=== PATIENT | female | born 2000 ===

== ENCOUNTER 2021-05-29 02:24 | Inpatient (IN) | payer BC ==
[2021-05-29] MEDS ORDERED: Carboprost Tromethamine 250 MCG/1 ML Amp IM PRN (02:37)
[2021-05-29] MEDS ORDERED: Butorphanol 1 MG/ML SDV IVPUSH PRN (02:37)
[2021-05-29] MEDS ORDERED: Sodium Chloride 0.9% 2.5 ML Syringe FLUSH PRN (02:37)
[2021-05-29] MEDS ORDERED: Tranexamic Acid 1,000 MG in Sodium Chloride 0.9% 100 ML IV PRN (02:37)
[2021-05-29] MEDS ORDERED: Sodium Chloride 0.9% 20 ML SDV IV PRN (02:37)
[2021-05-29] MEDS ORDERED: Sodium Chloride 0.9% 10 ML Syringe FLUSH PRN (02:37)
[2021-05-29] MEDS ORDERED: Nalbuphine 10 MG/1 ML Vial IVPUSH PRN (02:37)
[2021-05-29] MEDS ORDERED: Methylergonovine 0.2 MG/1 ML Amp IM PRN (02:37)
[2021-05-29] MEDS ORDERED: Water For Irrigation,Sterile 1,000 ML Container IRR PRN (02:37)
[2021-05-29] MEDS ORDERED: Lidocaine 1% 50 ML MDV INJECT PRN (02:37)
[2021-05-29] MEDS ORDERED: Misoprostol 200 MCG Tab PO PRN (02:37)
[2021-05-29] MEDS ORDERED: Ondansetron 4 MG/2 ML SDV IVPUSH PRN (02:37)
[2021-05-29] MEDS ORDERED: Oxytocin/0.9 % Sodium Chloride 30 UNIT/500 ML BAG IV SCH (02:45)
[2021-05-29] MEDS: Lactated Ringers 1,000 ML IV SCH ×2 (02:55→03:42)
[2021-05-29] MEDS ORDERED: oxyCODONE 5 MG Tab PO PRN (04:40)
[2021-05-29] MEDS ORDERED: Ibuprofen 400 MG Tab PO PRN (04:40)
[2021-05-29] MEDS ORDERED: Docusate Sodium 100 MG Cap PO PRN (04:40)
[2021-05-29] MEDS ORDERED: Acetaminophen 500 MG Tab PO PRN ×2 (04:40)
[2021-05-29] MEDS ORDERED: Lanolin 100% Cream 7 GM Tube TOP PRN (04:40)
[2021-05-29] MEDS ORDERED: Bisacodyl 10 MG Supp RECTAL PRN (04:40)
[2021-05-29] MEDS ORDERED: Benzocaine/Menthol 20%-0.5% Spray 78 GM Cannister TOP PRN (04:40)
[2021-05-29] MEDS ORDERED: Witch Hazel Medicated Pads 40/Jar TOP PRN (04:40)
--- NOTE | 2021-05-29 04:52 | PCM.LDHP ---
L&D History of Present Illness - General Date of Service: 05/29/21 Admit Problem/Dx: Patient Status Order with Admit Dx/Problem 05/29/21 02:37 Patient Status [ADT] Routine 05/29/21 04:40 Patient Status [ADT] Routine Admission Diagnosis/Problem Admission Diagnosis/Problem - History of Present Illness Introduction:: 20yo at 40w2d TRACEE 05/27/2021 by LMP confirmed with 8w6d US presenting in labor. Patient started having mild contractions few hours ago, was monitored in triage and did not make cervical change. She reports stronger contractions starting around 2AM that is every 1-2min. Denies loss of fluid or vaginal bleeding. She is GBS negative. Otherwise had normal . - Related Data Allergies/Adverse Reactions: Allergies Allergy/AdvReac Type Severity Reaction Status Date / Time No Known Allergies Allergy Verified 04/13/21 11:16 Home Medications: Home Meds Vit #76/Iron,Carb/Fa [Pnv 29-1 Tablet] 1 each PO DAILY 04/13/21 [History] Past Medical History - Past Health History Medical/Surgical History: Denies Medical/Surgical History HEENT History: Reports: Other (See Below) Other HEENT History: pt wears glasses [employer] History: Reports: - Infectious Disease History Infectious Disease History: Reports: Novel Coronavirus - Past Surgical History HEENT Surgical History: Reports: None Social & Family History - Family History Cardiac: Reports: Other (See Below) Other Cardiac Family History: heart condition (unknown) Psychiatric: Reports: Depression Endocrine/Metabolic: Reports: Diabetes, Type I Oncologic: Reports: Bladder - Tobacco Use Tobacco Use Status *Q: Never Tobacco User - Recreational Drug Use Recreational Drug Use: No H&P Review of Systems - Review of Systems: Review Of Systems: See Below General: Reports: No Symptoms HEENT: Reports: No Symptoms Pulmonary: Reports: No Symptoms Cardiovascular: Reports: No Symptoms Gastrointestinal: Reports: No Symptoms Genitourinary: Reports: Other (Contractions, pelvic pressure) Musculoskeletal: Reports: No Symptoms Skin: Reports: No Symptoms Psychiatric: Reports: No Symptoms Neurological: Reports: No Symptoms Hematologic/Lymphatic: Reports: No Symptoms Immunologic: Reports: No Symptoms L&D Exam - Exam Exam: See Below - Vital Signs Weight: 165 lb - OB Specific Contraction Frequency (min): 2 Contraction Intensity: Strong Movement: Active Heart Tones per Min: 120 Heart Rate (FHR) Variability: Moderate (6-25 bpm) Presentation: Vertex Estimated Weight: 7lbs - Exam General: Alert, Oriented, Cooperative HEENT: Conjunctiva Clear, EACs Clear, EOMI, Hearing Intact, Pupils Equal, Pupils Reactive Neck: Supple, Trachea Midline Lungs: Normal Respiratory Effort GI/Abdominal Exam: Soft, Non-Tender, No Distention Genitourinary: Other (6cm dilated per patient nurse, membrane intact) Back Exam: Normal Inspection, Full Range of Motion Extremities: Normal Inspection, Normal Range of Motion, Non-Tender, No Pedal Edema Skin: Warm, Dry, Intact Neurological: Cranial Nerves Intact, Reflexes Equal Bilateral Psychiatric: Alert, Normal Affect, Normal Mood - Patient Data Lab Results Last 24 hrs: Laboratory Results - last 24 hr 05/29/21 05/29/21 05/29/21 Range/Units 02:50 02:50 02:52 WBC 20.54 H (4.0-11.0) K/uL RBC 4.09 L (4.30-5.90) M/uL Hgb 10.8 L (12.0-16.0) g/dL Hct 32.2 L (36.0-46.0) % MCV 78.7 L (80.0-98.0) fL MCH 26.4 L (27.0-32.0) pg MCHC 33.5 (31.0-37.0) g/dL RDW Std Deviation 48.0 (28.0-62.0) fl RDW Coeff of Feng 17 H (11.0-15.0) % Plt Count 300 (150-400) K/uL MPV 10.40 (7.40-12.00) fL Nucleated RBC % 0.0 /100WBC Nucleated RBCs # 0 K/uL SARS-CoV-2 RNA (FELIPA) NEGATIVE (NEGATIVE) Blood Type A POSITIVE Antibody Screen NEGATIVE Result Diagrams: 05/29/21 02:50 Problem List Initiated/Reviewed/Updated: Yes Orders Last 24hrs: Active Orders 24 hr Category Date Time Status Patient Status [ADT] Routine ADT 05/29/21 04:40 Active Cooling Warming Measures [RC] ASDIRECTED Care 05/29/21 04:41 Active Regular Diet [DIET] Diet 05/29/21 Breakfast Active HEMOGLOBIN/HEMATOCRIT,HH [HEME] Timed Lab 05/30/21 05:11 Ordered PATIENT RETYPE [BBK] Routine Lab 05/29/21 04:15 Ordered RPR (SYPHILIS SERO) W/ RFLX [REF] Routine Lab 05/29/21 02:50 Received Acetaminophen [Tylenol Extra Strength] Med 05/29/21 04:40 Active 1,000 mg PO Q4H PRN Acetaminophen [Tylenol Extra Strength] Med 05/29/21 04:40 Active 500 mg PO Q4H PRN Benzocaine/Menthol [Dermoplast Pain Relief 20%-0.5% Med 05/29/21 04:40 Active [place]] 78 gm TOP ASDIRECTED PRN Docusate Sodium [Colace] Med 05/29/21 04:40 Active 100 mg PO Q12H PRN Ibuprofen [Motrin] Med 05/29/21 04:40 Active 400 mg PO Q4H PRN Ibuprofen [Motrin] Med 05/29/21 04:40 Active 800 mg PO Q6H PRN Lanolin [Lansinoh HPA] Med 05/29/21 04:40 Active See Dose Instructions TOP ASDIRECTED PRN Sodium Chloride 0.9% [Normal Saline] Med 05/29/21 02:37 Active 10 ml IV ASDIRECTED PRN Sodium Chloride 0.9% [Saline Flush] Med 05/29/21 02:37 Active 10 ml FLUSH ASDIRECTED PRN Sodium Chloride 0.9% [Saline Flush] Med 05/29/21 02:37 Active 2.5 ml FLUSH ASDIRECTED PRN bisacodyL [Dulcolax] Med 05/29/21 04:40 Active 10 mg RECTAL ONETIME PRN oxyCODONE Med 05/29/21 04:40 Active 5 mg PO Q2H PRN witch Mary [Tucks] Med 05/29/21 04:40 Active 1 pad TOP ASDIRECTED PRN Assess Lochia [WOMSER] Per Unit Routine Oth 05/29/21 04:40 Ordered Assess Uterine Involution [WOMSER] Per Unit Routine Oth 05/29/21 04:40 Ordered Ice Therapy [OM.PC] Per Unit Routine Oth 05/29/21 04:41 Ordered Perineal Care [OM.PC] Per Unit Routine Oth 05/29/21 04:41 Ordered Peripheral IV Discontinue [OM.PC] Routine Oth 05/29/21 04:40 Ordered Peripheral IV Insertion Adult [OM.PC] Routine Oth 05/29/21 02:37 Ordered Sitz Bath [OM.PC] Per Unit Routine Oth 05/29/21 04:41 Ordered Resuscitation Status Routine Resus Stat 05/29/21 02:37 Ordered Medication Orders Acetaminophen (Acetaminophen 500 Mg Tab) 500 mg PO Q4H PRN PRN Reason: Pain (mild 1-3) Acetaminophen (Acetaminophen 500 Mg Tab) 1,000 mg PO Q4H PRN PRN Reason: Pain (mild 1-3) Benzocaine/Menthol (Benzocaine/Menthol 20%-0.5% [place] 78 Gm Cannister) 78 gm TOP ASDIRECTED PRN PRN Reason: Perineal Comfort Measure Bisacodyl (Bisacodyl 10 Mg Supp) 10 mg RECTAL ONETIME PRN PRN Reason: Constipation Docusate Sodium (Docusate Sodium 100 Mg Cap) 100 mg PO Q12H PRN PRN Reason: Constipation Emollient Ointment (Lanolin 100% Cream 7 Gm Tube) 0 gm TOP ASDIRECTED PRN PRN Reason: Sore Nipples Ibuprofen (Ibuprofen 400 Mg Tab) 400 mg PO Q4H PRN PRN Reason: Pain (mild 1-3) Ibuprofen (Ibuprofen 800 Mg Tab) 800 mg PO Q6H PRN PRN Reason: Cramping Oxycodone HCl (Oxycodone 5 Mg Tab) 5 mg PO Q2H PRN PRN Reason: Pain (severe 7-10) Sodium Chloride (Sodium Chloride 0.9% 10 Ml Syringe) 10 ml FLUSH ASDIRECTED PRN PRN Reason: Keep Vein Open Sodium Chloride (Sodium Chloride 0.9% 2.5 Ml Syringe) 2.5 ml FLUSH ASDIRECTED PRN PRN Reason: Keep Vein Open Sodium Chloride (Sodium Chloride 0.9% 20 Ml Sdv) 10 ml IV ASDIRECTED PRN PRN Reason: IV Use Witch Mary (Witch Mary Medicated Pads 40/Jar) 1 pad TOP ASDIRECTED PRN PRN Reason: comfort care Assessment/Plan Comment:: 20yo at 40w2d presenting with active labor. - admit to L&D, labs CBC, RPR, T&S, COVID19 test - GBS negative - A+, Rubella immune - Cat 1 tracing - Epidural, pain meds PRN Reassuring maternal and status, anticipate vaginal delivery.
--- NOTE | 2021-05-29 04:59 | PCM.DEL ---
L & D Note - General Info Date of Service: 05/29/21 - Delivery Note Labor: Spontaneous, Augmented by ARM Delivery Outcome: Livebirth Presentation: Vertex Nuchal Cord: Present, Reduced Anesthesia Type: Local Anesthetic: Lidocaine (Xylocaine) 1% Plain Local Anesthetic Volume: Other (20cc) Amniotic Fluid Description: Clear Episiotomy Type: None Laceration: Periurethral, Sulcus Suture type: Vicryl Suture size: 3-0 Placenta: Intact, Spontaneous Cord: 3 Vessels Estimated Blood Loss: 300 Resuscitation Needed: No Provider: Katarina Avila Score 1 min: 8 Score 5 min: 9 Second Stage Interventions: Reports: Pushing Effectively - General Info Date of Service: 05/29/21 - Patient Data Weight - Most Recent: 165 lb I&O - Last 24 Hours: Intake & Output 05/28/21 05/28/21 05/29/21 14:59 22:59 05:59 Intake Total 1000 Balance 1000 Lab Results Last 24 Hours: Laboratory Results - last 24 hr 05/29/21 05/29/21 05/29/21 Range/Units 02:50 02:50 02:52 WBC 20.54 H (4.0-11.0) K/uL RBC 4.09 L (4.30-5.90) M/uL Hgb 10.8 L (12.0-16.0) g/dL Hct 32.2 L (36.0-46.0) % MCV 78.7 L (80.0-98.0) fL MCH 26.4 L (27.0-32.0) pg MCHC 33.5 (31.0-37.0) g/dL RDW Std Deviation 48.0 (28.0-62.0) fl RDW Coeff of Feng 17 H (11.0-15.0) % Plt Count 300 (150-400) K/uL MPV 10.40 (7.40-12.00) fL Nucleated RBC % 0.0 /100WBC Nucleated RBCs # 0 K/uL SARS-CoV-2 RNA (FELIPA) NEGATIVE (NEGATIVE) Blood Type A POSITIVE Antibody Screen NEGATIVE Med Orders - Current: Current Medications Acetaminophen (Acetaminophen 500 Mg Tab) 500 mg PO Q4H PRN PRN Reason: Pain (mild 1-3) Acetaminophen (Acetaminophen 500 Mg Tab) 1,000 mg PO Q4H PRN PRN Reason: Pain (mild 1-3) Benzocaine/Menthol (Benzocaine/Menthol 20%-0.5% [place] 78 Gm Cannister) 78 gm TOP ASDIRECTED PRN PRN Reason: Perineal Comfort Measure Bisacodyl (Bisacodyl 10 Mg Supp) 10 mg RECTAL ONETIME PRN PRN Reason: Constipation Docusate Sodium (Docusate Sodium 100 Mg Cap) 100 mg PO Q12H PRN PRN Reason: Constipation Emollient Ointment (Lanolin 100% Cream 7 Gm Tube) 0 gm TOP ASDIRECTED PRN PRN Reason: Sore Nipples Ibuprofen (Ibuprofen 400 Mg Tab) 400 mg PO Q4H PRN PRN Reason: Pain (mild 1-3) Ibuprofen (Ibuprofen 800 Mg Tab) 800 mg PO Q6H PRN PRN Reason: Cramping Oxycodone HCl (Oxycodone 5 Mg Tab) 5 mg PO Q2H PRN PRN Reason: Pain (severe 7-10) Sodium Chloride (Sodium Chloride 0.9% 10 Ml Syringe) 10 ml FLUSH ASDIRECTED PRN PRN Reason: Keep Vein Open Sodium Chloride (Sodium Chloride 0.9% 2.5 Ml Syringe) 2.5 ml FLUSH ASDIRECTED PRN PRN Reason: Keep Vein Open Sodium Chloride (Sodium Chloride 0.9% 20 Ml Sdv) 10 ml IV ASDIRECTED PRN PRN Reason: IV Use Witch Mary (Witch Mary Medicated Pads 40/Jar) 1 pad TOP ASDIRECTED PRN PRN Reason: comfort care Discontinued Medications Butorphanol Tartrate (Butorphanol 1 Mg/Ml Sdv) 1 mg IVPUSH Q1H PRN PRN Reason: Pain (severe 7-10) Carboprost Tromethamine (Carboprost Tromethamine 250 Mcg/1 Ml Amp) 250 mcg IM ASDIRECTED PRN PRN Reason: Post Hemorrhage Oxytocin/Sodium Chloride (Oxytocin 30 Unit In Ns 0.9% 500 Ml Premix) 30 unit in 500 mls @ 500 mls/hr IV TITRATE KENN Last Admin: 05/29/21 04:01 Dose: 500 mls/hr Documented by: Tranexamic Acid 1,000 mg/ (Sodium Chloride) 110 mls @ 660 mls/hr IV ONETIME PRN PRN Reason: Bleeding Lactated Ringer's (Ringers, Lactated) 1,000 mls @ 150 mls/hr IV ASDIRECTED KENN Last Admin: 05/29/21 03:42 Dose: 999 mls/hr Documented by: Lidocaine HCl (Lidocaine 1% 50 Ml Mdv) 50 ml INJECT ONETIME PRN PRN Reason: Laceration repair Last Admin: 05/29/21 04:09 Dose: 50 ml Documented by: Methylergonovine Maleate (Methylergonovine 0.2 Mg/1 Ml Amp) 0.2 mg IM ASDIRECTED PRN PRN Reason: Post Hemorrhage Misoprostol (Misoprostol 200 Mcg Tab) 200 mcg PO ONETIME PRN PRN Reason: Post Hemorrhage Nalbuphine HCl (Nalbuphine 10 Mg/1 Ml Vial) 10 mg IVPUSH Q1H PRN PRN Reason: Pain (severe 7-10) Ondansetron HCl (Ondansetron 4 Mg/2 Ml Sdv) 4 mg IVPUSH Q6H PRN PRN Reason: Nausea/Vomiting Sterile Water (Water For Irrigation,Sterile 1,000 Ml Container) 1,000 ml IRR ASDIRECTED PRN PRN Reason: delivery Last Admin: 05/29/21 04:09 Dose: 1,000 ml Documented by: - Problem List Review Problem List Initiated/Reviewed/Updated: Yes - My Orders Last 24 Hours: My Active Orders 05/29/21 02:37 Sodium Chloride 0.9% [Normal Saline] 10 ml IV ASDIRECTED PRN Sodium Chloride 0.9% [Saline Flush] 10 ml FLUSH ASDIRECTED PRN Sodium Chloride 0.9% [Saline Flush] 2.5 ml FLUSH ASDIRECTED PRN Peripheral IV Insertion Adult [OM.PC] Routine Resuscitation Status Routine 05/29/21 02:50 RPR (SYPHILIS SERO) W/ RFLX [REF] Routine 05/29/21 04:15 PATIENT RETYPE [BBK] Routine 05/29/21 04:40 Patient Status [ADT] Routine Acetaminophen [Tylenol Extra Strength] 1,000 mg PO Q4H PRN Acetaminophen [Tylenol Extra Strength] 500 mg PO Q4H PRN Benzocaine/Menthol [Dermoplast Pain Relief 20%-0.5% [place]] 78 gm TOP ASDIRECTED PRN Docusate Sodium [Colace] 100 mg PO Q12H PRN Ibuprofen [Motrin] 400 mg PO Q4H PRN Ibuprofen [Motrin] 800 mg PO Q6H PRN Lanolin [Lansinoh HPA] See Dose Instructions TOP ASDIRECTED PRN bisacodyL [Dulcolax] 10 mg RECTAL ONETIME PRN oxyCODONE 5 mg PO Q2H PRN witch Mary [Tucks] 1 pad TOP ASDIRECTED PRN Assess Lochia [WOMSER] Per Unit Routine Assess Uterine Involution [WOMSER] Per Unit Routine Peripheral IV Discontinue [OM.PC] Routine 05/29/21 04:41 Cooling Warming Measures [RC] ASDIRECTED Ice Therapy [OM.PC] Per Unit Routine Perineal Care [OM.PC] Per Unit Routine Sitz Bath [OM.PC] Per Unit Routine 05/29/21 Breakfast Regular Diet [DIET] 05/30/21 05:11 HEMOGLOBIN/HEMATOCRIT,HH [HEME] Timed - Plan Plan:: 20yo at 40w2d s/p uncomplicated . Routine care.
[2021-05-29] MEDS: Ibuprofen 800 MG Tab PO PRN (12:32)
--- NOTE | 2021-05-29 14:08 | OR ---
SURGEON: Nirmal Padron MD DATE OF PROCEDURE: 05/29/2021 INDICATION FOR PROCEDURE: A 20-year-old, G1, P0, presenting with active labor. The patient had contractions starting a few hours ago. She was evaluated in triage on Labor and Delivery and was not dilated, was sent home after about 2 hours. She then began having very strong contractions every 2-3 minutes. She was found to be 6 cm dilated. Membrane was intact. She is GBS negative. She had otherwise uncomplicated . She continued to progress quickly and became fully dilated within the next hour. tracing was category I. She was feeling pelvic pressure and urge to push. PREOPERATIVE DIAGNOSES: 1. [place] intrauterine at 40 weeks and 2 days. 2. Active stage of labor. POSTOPERATIVE DIAGNOSES: 1. [place] intrauterine at 40 weeks and 2 days. 2. Active stage of labor. PROCEDURES PERFORMED: Normal spontaneous vaginal delivery, repair of sulcal lacerations and bilateral periurethral lacerations. ANESTHESIA: Local anesthesia. FINDINGS: Viable male , score of 8 and 9. weight of 3630g. Nuchal cord x1 that was reduced after delivery. ESTIMATED BLOOD LOSS: 300 mL. DESCRIPTION OF PROCEDURE: The patient pushed with contractions for about 10 minutes with good descent. head delivered in occiput anterior position over an intact perineum. Anterior shoulder delivered easily followed by posterior shoulder and remaining body. There was a tight nuchal cord that was reduced after delivery. The baby was placed on maternal chest and evaluated by awaiting nursery staff. The baby was pink, crying, and moving all extremities immediately after delivery. The umbilical cord was clamped and cut after about 3 minutes and no longer pulsating. The umbilical cord gases were obtained. The placenta was removed with gentle traction on the umbilical cord. It was examined to be intact with 3-vessel cord. Fundal massage was performed and the fundus was firm and below the umbilicus and the bleeding was light. The vagina and perineum were examined and she had a deep sulcal laceration. She also had bilateral periurethral lacerations that extended [facility] along the labia minora. 20 mL of 1% lidocaine was injected for local anesthesia. The sulcal laceration was repaired in the usual fashion with 3-0 Vicryl. Bilateral periurethral tears were also repaired in a running fashion with 3-0 Vicryl. Hemostasis was confirmed after the procedure. The patient tolerated the procedure well and was given care instructions. KORY RAUSCH /[id number] MTDD
[2021-05-30] MEDS: Ibuprofen 800 MG Tab PO PRN (01:38)
--- NOTE | 2021-05-30 10:35 | PCM.PNPP ---
- General Info Date of Service: 05/30/21 Admission Dx/Problem (Free Text): Patient Status Order with Admit Dx/Problem 05/29/21 02:37 Patient Status [ADT] Routine 05/29/21 04:40 Patient Status [ADT] Routine Admission Diagnosis/Problem Admission Diagnosis/Problem Subjective Update: Resting comfortably in bed during rounds. Ambulating and voiding without difficulty. Lochia decreasing. Pain well controlled. Tolerating regular diet. , going well per patient. - General Info Date of Service: 05/30/21 - Patient Data Vital Signs - Most Recent: Last Vital Signs Temp 97.7 F 05/30/21 07:57 Pulse 97 05/30/21 07:57 Resp 18 05/30/21 07:57 BP 118/72 05/30/21 07:57 Pulse Ox 100 05/30/21 07:57 Weight - Most Recent: 165 lb Lab Results - Last 24 Hours: Laboratory Results - last 24 hr 05/30/21 Range/Units 05:44 Hgb 8.1 L (12.0-16.0) g/dL Hct 25.2 L (36.0-46.0) % Med Orders - Current: Current Medications Acetaminophen (Acetaminophen 500 Mg Tab) 500 mg PO Q4H PRN PRN Reason: Pain (mild 1-3) Acetaminophen (Acetaminophen 500 Mg Tab) 1,000 mg PO Q4H PRN PRN Reason: Pain (mild 1-3) Last Admin: 05/29/21 12:31 Dose: 1,000 mg Documented by: Benzocaine/Menthol (Benzocaine/Menthol 20%-0.5% [place] 78 Gm Cannister) 78 gm TOP ASDIRECTED PRN PRN Reason: Perineal Comfort Measure Last Admin: 05/29/21 10:01 Dose: 1 can Documented by: Bisacodyl (Bisacodyl 10 Mg Supp) 10 mg RECTAL ONETIME PRN PRN Reason: Constipation Docusate Sodium (Docusate Sodium 100 Mg Cap) 100 mg PO Q12H PRN PRN Reason: Constipation Last Admin: 05/30/21 09:45 Dose: 100 mg Documented by: Emollient Ointment (Lanolin 100% Cream 7 Gm Tube) 0 gm TOP ASDIRECTED PRN PRN Reason: Sore Nipples Last Admin: 05/29/21 10:02 Dose: 1 tube Documented by: Ibuprofen (Ibuprofen 400 Mg Tab) 400 mg PO Q4H PRN PRN Reason: Pain (mild 1-3) Ibuprofen (Ibuprofen 800 Mg Tab) 800 mg PO Q6H PRN PRN Reason: Cramping Last Admin: 05/30/21 01:38 Dose: 800 mg Documented by: Oxycodone HCl (Oxycodone 5 Mg Tab) 5 mg PO Q2H PRN PRN Reason: Pain (severe 7-10) Sodium Chloride (Sodium Chloride 0.9% 10 Ml Syringe) 10 ml FLUSH ASDIRECTED PRN PRN Reason: Keep Vein Open Sodium Chloride (Sodium Chloride 0.9% 2.5 Ml Syringe) 2.5 ml FLUSH ASDIRECTED PRN PRN Reason: Keep Vein Open Sodium Chloride (Sodium Chloride 0.9% 20 Ml Sdv) 10 ml IV ASDIRECTED PRN PRN Reason: IV Use Witch Mary (Witch Mary Medicated Pads 40/Jar) 1 pad TOP ASDIRECTED PRN PRN Reason: comfort care Last Admin: 05/29/21 10:01 Dose: 1 tube Documented by: Discontinued Medications Butorphanol Tartrate (Butorphanol 1 Mg/Ml Sdv) 1 mg IVPUSH Q1H PRN PRN Reason: Pain (severe 7-10) Carboprost Tromethamine (Carboprost Tromethamine 250 Mcg/1 Ml Amp) 250 mcg IM ASDIRECTED PRN PRN Reason: Post Hemorrhage Oxytocin/Sodium Chloride (Oxytocin 30 Unit In Ns 0.9% 500 Ml Premix) 30 unit in 500 mls @ 500 mls/hr IV TITRATE [facility] Last Admin: 05/29/21 04:01 Dose: 500 mls/hr Documented by: Tranexamic Acid 1,000 mg/ (Sodium Chloride) 110 mls @ 660 mls/hr IV ONETIME PRN PRN Reason: Bleeding Lactated Ringer's (Ringers, Lactated) 1,000 mls @ 150 mls/hr IV ASDIRECTED [facility] Last Admin: 05/29/21 03:42 Dose: 999 mls/hr Documented by: Lidocaine HCl (Lidocaine 1% 50 Ml Mdv) 50 ml INJECT ONETIME PRN PRN Reason: Laceration repair Last Admin: 05/29/21 04:09 Dose: 50 ml Documented by: Methylergonovine Maleate (Methylergonovine 0.2 Mg/1 Ml Amp) 0.2 mg IM ASDIRECTED PRN PRN Reason: Post Hemorrhage Misoprostol (Misoprostol 200 Mcg Tab) 200 mcg PO ONETIME PRN PRN Reason: Post Hemorrhage Nalbuphine HCl (Nalbuphine 10 Mg/1 Ml Vial) 10 mg IVPUSH Q1H PRN PRN Reason: Pain (severe 7-10) Ondansetron HCl (Ondansetron 4 Mg/2 Ml Sdv) 4 mg IVPUSH Q6H PRN PRN Reason: Nausea/Vomiting Sterile Water (Water For Irrigation,Sterile 1,000 Ml Container) 1,000 ml IRR ASDIRECTED PRN PRN Reason: delivery Last Admin: 05/29/21 04:09 Dose: 1,000 ml Documented by: - Interaction Disposition, : [place] in Room with Family Infant Feeding: Breastfed Infant; Nursed Well Support Person: - Recovery Exam Fundal Tone: Firm Fundal Level: 1 Fingerbreadths Below Umbilicus Fundal Placement: Midline Lochia Amount: Scant Lochia Color: Rubra/Red Perineum Description: Edematous, Other (see below) Other Perinuem Description: periurethral/sulcus laceration Episiotomy/Laceration: Approximated Bladder Status: Voiding Urinary Elimination: Voided - Exam General: Alert Lungs: Normal Respiratory Effort Cardiovascular: Regular Rate GI/Abdominal Exam: Soft, Non-Tender Extremities: Normal Range of Motion, Non-Tender, No Pedal Edema Skin: Warm, Dry, Intact Neurological: No New Focal Deficit Psy/Mental Status: Normal Mood - Problem List Review Problem List Initiated/Reviewed/Updated: Yes - Assessment Assessment:: 20yo at 40w2d PPD1 s/p uncomplicated . - Plan Plan:: Routine cares * Rh positive, rubella immune, GBS negative * PO pain medications ordered PRN * Regular diet as tolerated * Encourage ambulation and fluid intake when able * Desires to breastfeed, nursing assistance PRN Dispo: stable. Plan for discharge home today. Reviewed discharge instructions.
== END 2021-05-30 12:10 | disposition home or self-care (01) | DRG 560 ==
LOC: MW.OBCHECK 02:24 → MW.OB 02:26 → MW.OBCHECK 02:36 → MW.OB 02:37 → OBSVTOIN 04:40 → MW.OB 10:00
PROVIDERS: ADMIT Obstetrics & Gynecology; ATTEND Obstetrics & Gynecology
PROC: 10E0XZZ Delivery of Products of Conception, External Approach (ICD-10-PCS; principal; 2021-05-29)
PROC: 0UQMXZZ Repair Vulva, External Approach (ICD-10-PCS; 2021-05-29)
DX: O48.0 Post-term pregnancy (principal); Z37.0 Single live birth; O69.1XX0 Labor and delivery complicated by cord around neck, with compression, not applicable or unspecified; O71.82 Other specified trauma to perineum and vulva; Z20.822 Contact with and (suspected) exposure to COVID-19; Z3A.40 40 weeks gestation of pregnancy
CPT/HCPCS: 36415; 51701; 59025; 59409; 85014; 85018; 85027; 86592; 86850; 86900; 86901; A9270-GY; J2001; J2590; J7120; U0002

== ENCOUNTER 2023-08-20 23:20 | Inpatient (IN) | payer BC ==
[2023-08-21] MEDS ORDERED: Sodium Chloride 0.9% 10 ML Syringe FLUSH PRN (01:29)
[2023-08-21] MEDS ORDERED: Lidocaine 1% 50 ML MDV INJECT PRN (01:29)
[2023-08-21] MEDS ORDERED: Ondansetron 4 MG/2 ML SDV IVPUSH PRN (01:29)
[2023-08-21] MEDS ORDERED: Carboprost Tromethamine 250 MCG/1 mL Vial IM PRN (01:29)
[2023-08-21] MEDS ORDERED: Methylergonovine 0.2 MG/1 ML Amp IM PRN (01:29)
[2023-08-21] MEDS ORDERED: Tranexamic Acid IN NACL,ISO-OS 1,000 MG in Premix Bag 1 BAG IV PRN (01:29)
[2023-08-21] MEDS ORDERED: Sodium Chloride 0.9% 2.5 ML Syringe FLUSH PRN (01:29)
[2023-08-21] MEDS ORDERED: Nalbuphine 10 MG/0.5 ML Syringe IVPUSH PRN (01:29)
[2023-08-21] MEDS ORDERED: Sodium Chloride 0.9% 20 ML SDV IV PRN (01:29)
[2023-08-21] MEDS ORDERED: Water For Irrigation,Sterile 1,000 ML Container IRR PRN (01:29)
[2023-08-21] MEDS ORDERED: Misoprostol 200 MCG Tab PO PRN (01:29)
[2023-08-21] MEDS: Lactated Ringers 1,000 ML IV SCH (01:35)
[2023-08-21 01:39] LABS: HEMATOCRIT 37.7 % (37.0-47.0); HEMOGLOBIN 13.5 g/dL (12.0-16.0); MEAN CORPUSCULAR HEMOGLOBIN 31.9 pg (28.0-32.0); MEAN CORPUSCULAR HGB CONC 35.8 g/dL (32.0-36.0); MEAN CORPUSCULAR VOLUME 89.1 fL (83.0-99.0); MEAN PLATELET VOLUME 10.3 fL (9.4-12.3); PLATELET COUNT,PLT 219 K/uL (150-400); RED BLOOD CELL COUNT 4.23 M/uL (4.10-5.30); WHITE BLOOD CELL COUNT,WBC 16.12 K/uL (3.9-11.3)
[2023-08-21] MEDS: Ropivacaine HCl/PF 400 MG in Premix Bag 1 BAG EPIDUR SCH (02:00)
[2023-08-21] MEDS ORDERED: ePHEDrine 50 MG/ML SDV IVPUSH PRN ×2 (02:07)
[2023-08-21] MEDS: Phenylephrine HCl 0.5 MG/5 ML AMP IVPUSH PRN (03:02)
[2023-08-21] MEDS: Oxytocin/0.9 % Sodium Chloride 30 UNIT/500 ML BAG IV SCH (04:16)
[2023-08-21] MEDS: Benzocaine/Menthol 20%-0.5% Spray 78 GM Cannister TOP PRN (07:55)
[2023-08-21] MEDS: Witch Hazel Medicated Pads 40/Jar TOP PRN (07:55)
[2023-08-21] MEDS: Phenylephrine HCl 0.5 MG/5 ML AMP ONE (10:40)
[2023-08-21] MEDS: Ropivacaine HCl/PF 200 ML ONE (10:41)
[2023-08-21] MEDS: fentaNYL 100 MCG/2 ML SDV ONE (10:41)
[2023-08-21] MEDS ORDERED: Acetaminophen 500 MG Tab PO PRN (18:35)
[2023-08-21] MEDS: Ibuprofen 800 MG Tab PO PRN (21:10)
[2023-08-22 06:43] LABS: HEMATOCRIT 35.8 % (37.0-47.0); HEMOGLOBIN 12.5 g/dL (12.0-16.0)
== END 2023-08-22 13:40 | disposition home or self-care (01) | DRG 560 ==
LOC: MW.OB 23:20 → MW.OBCHECK 23:20 → MW.OB 08-21 01:30 → MW.OBCHECK 08-21 01:30 → OBSVTOIN 08-21 04:13 → MW.OB 08-21 10:01
PROVIDERS: ADMIT Obstetrics & Gynecology; ATTEND Obstetrics & Gynecology
PROC: 10E0XZZ Delivery of Products of Conception, External Approach (ICD-10-PCS; principal; 2023-08-21)
PROC: 0HQ9XZZ Repair Perineum Skin, External Approach (ICD-10-PCS; 2023-08-21)
DX: O70.0 First degree perineal laceration during delivery (principal); Z37.0 Single live birth; Z3A.39 39 weeks gestation of pregnancy
CPT/HCPCS: 01967; 36415; 51702; 59025; 59409; 85014; 85018; 85027; 86592; 86850; 86900; 86901; A9270-GY; J2371; J2590; J2795; J3010; J7120